=== PATIENT | female | born 1990 | race Hispanic/Latino ===

== ENCOUNTER → 2024-10-10 | Emergency (ER) | payer OTHER ==
--- NOTE | 2024-10-10 19:45 | NUR ---
CALLED FOR PT IN LOBBY TO TRIAGE. PT NOT FOUND IN LOBBY.
--- NOTE | 2024-10-10 19:58 | NUR ---
CALLED FOR PT IN LOBBY, NO RESPONSE; PT NOT FOUND IN LOBBY
== END ==
LOC: EDH 18:30
DX: R10.9 Unspecified abdominal pain (principal); Z53.21 Procedure and treatment not carried out due to patient leaving prior to being seen by health care provider